=== PATIENT | female | born 1960 | race Caucasian/White ===

== ENCOUNTER 2018-01-01 19:12 | Emergency (ER) | payer SELFPAY ==
[~2018-01-01] VITALS: Ht 162.6 cm; Wt 68.0 kg
[2018-01-01 19:16] VITALS: BP 199/121; PULSE 109; RESP 18; TEMP 99; O2SAT 99
[2018-01-01 19:42] VITALS: BP 197/106; PULSE 103; RESP 18; O2SAT 98
[2018-01-01] MEDS ORDERED: SODIUM CHLOR 0.9% 1000 ML INJ 1,000 ML IV SCH (19:57)
[2018-01-01] MEDS ORDERED: ONDANSETRON HCL 4 MG/2 ML VIAL IVP ONE (20:00)
[2018-01-01] MEDS ORDERED: MORPHINE SULFATE 2 MG/ML INJ IV PUSH ONE (20:00)
--- NOTE | 2018-01-01 20:17 | PD ---
HPI Chief Complaint: Abdominal Pain Time Seen by Provider: 19:48 Travel History International Travel<30 days: No Contact w/Intl Traveler<30days: No Traveled to known affect area: No History of Present Illness HPI 57-year-old female that presents to the ED for evaluation of epigastric abdominal pain. Per patient she's had this for about 24 hours. Per patient he started last night. Per patient his been continues. Per patient she has not been able to drink or eat anything secondary to nausea. Per patient she feels nauseous and hasn't vomited. She states having some diarrhea. States having a history of pancreatitis in the past and states that he feels similar. Per patient she is from out of town. She denies eating anything new. Allergies to Toradol and tramadol. Pain per patient is 7 out of 10. Denies any urinary issues. Denies any fevers chills or sweats. No recent surgeries. She states having had her gallbladder removed. PFSH Past Medical History Diminished Hearing: No Diverticulitis: Yes Gastrointestinal Disorders: Yes (COLITIS) Pancreatitis: Yes ?: Not Past Surgical History Appendectomy: Yes Genitourinary Surgery: Yes (LEFT NEPHRECTOMY) Social History Alcohol Use: No Tobacco Use: No Substance Use: No Allergies-Medications (Allergen,Severity, Reaction): Coded Allergies: ketorolac (Verified Allergy, Mild, Swelling, 01/01/18) tramadol (Verified Allergy, Mild, Itching, 01/01/18) Review of Systems Except as stated in HPI: all other systems reviewed are Neg Physical Exam Narrative GENERAL: SKIN: Warm and dry. HEAD: Atraumatic. Normocephalic. EYES: Pupils equal and round. No scleral icterus. No injection or drainage. ENT: No nasal bleeding or discharge. Mucous membranes pink and moist.Tongue is midline. No uvula deviation. NECK: Trachea midline. No JVD. CARDIOVASCULAR: Regular rate and rhythm. No murmurs, S3, S4. RESPIRATORY: No accessory muscle use. Clear to auscultation. Breath sounds equal bilaterally. GASTROINTESTINAL: Abdomen soft, tender to palpation in the epigastric area, nondistended. Hepatic and splenic margins not palpable. MUSCULOSKELETAL: Extremities without clubbing, cyanosis, or edema. No obvious deformities. Full range of motion of the upper and lower extremities bilaterally. 2+ pulses bilaterally. NEUROLOGICAL: Awake and alert. No obvious cranial nerve deficits. Motor grossly within normal limits. Five out of 5 muscle strength in the arms and legs. Normal speech. PSYCHIATRIC: Appropriate mood and affect; insight and judgment normal. Data Data Last Documented VS Vital Signs Date Time Temp Pulse Resp B/P (MAP) Pulse Ox O2 Delivery O2 Flow Rate FiO2 01/01/18 20:52 95 16 186/108 (134) 98 Room Air 01/01/18 19:16 99.0 Orders Orders Complete Blood Count With Diff (01/01/18 19:41) Comprehensive Metabolic Panel (01/01/18 19:41) Urinalysis - C+S If Indicated (01/01/18 19:41) Iv Access Insert/Monitor (01/01/18 19:41) Oxygen Administration (01/01/18 19:41) Oximetry (01/01/18 19:41) Lipase (01/01/18 19:41) Ct Abd/Pel W Iv Contrast(Rout) (01/01/18 ) Ondansetron Inj (Zofran Inj) (01/01/18 20:00) Sodium Chlor 0.9% 1000 Ml Inj (Ns 1000 M (01/01/18 19:57) Morphine Inj (Morphine Inj) (01/01/18 20:00) Diphenhydramine Inj (Benadryl Inj) (01/01/18 20:30) Hydromorphone Pf Inj (Dilaudid Pf Inj) (01/01/18 21:15) Iohexol 350 Inj (Omnipaque 350 Inj) (01/01/18 21:38) Ed Discharge Order (01/01/18 22:10) Labs Laboratory Tests Test 01/01/18 19:50 01/01/18 21:25 White Blood Count 5.9 TH/MM3 Red Blood Count 4.79 MIL/MM3 Hemoglobin 14.0 GM/DL Hematocrit 41.0 % Mean Corpuscular Volume 85.6 FL Mean Corpuscular Hemoglobin 29.3 PG Mean Corpuscular Hemoglobin Concent 34.2 % Red Cell Distribution Width 14.8 % Platelet Count 191 TH/MM3 Mean Platelet Volume 7.4 FL Neutrophils (%) (Auto) 54.6 % Lymphocytes (%) (Auto) 32.4 % Monocytes (%) (Auto) 9.7 % Eosinophils (%) (Auto) 2.6 % Basophils (%) (Auto) 0.7 % Neutrophils # (Auto) 3.2 TH/MM3 Lymphocytes # (Auto) 1.9 TH/MM3 Monocytes # (Auto) 0.6 TH/MM3 Eosinophils # (Auto) 0.2 TH/MM3 Basophils # (Auto) 0.0 TH/MM3 CBC Comment DIFF FINAL Differential Comment Blood Urea Nitrogen 10 MG/DL Creatinine 1.10 MG/DL Random Glucose 133 MG/DL Total Protein 8.2 GM/DL Albumin 3.8 GM/DL Calcium Level 9.5 MG/DL Alkaline Phosphatase 196 U/L Aspartate Amino Transf (AST/SGOT) 47 U/L Alanine Aminotransferase (ALT/SGPT) 53 U/L Total Bilirubin 0.4 MG/DL Sodium Level 137 MEQ/L Potassium Level 3.7 MEQ/L Chloride Level 103 MEQ/L Carbon Dioxide Level 24.8 MEQ/L Anion Gap 9 MEQ/L Estimat Glomerular Filtration Rate 52 ML/MIN Lipase 133 U/L Urine Color LIGHT-YELLOW Urine Turbidity CLEAR Urine pH 7.5 Urine Specific [place] 1.004 Urine Protein NEG mg/dL Urine Glucose (UA) NEG mg/dL Urine Ketones NEG mg/dL Urine Occult Blood NEG Urine Nitrite NEG Urine Bilirubin NEG Urine Urobilinogen LESS THAN 2.0 MG/DL Urine Leukocyte Esterase NEG Urine RBC 1 /hpf Urine WBC LESS THAN 1 /hpf Urine Squamous Epithelial Cells 5 /hpf Urine Bacteria RARE /hpf Microscopic Urinalysis Comment CULT NOT INDICATED MDM Medical Decision Making Medical Screen Exam Complete: Yes Emergency Medical Condition: Yes Medical Record Reviewed: Yes Interpretation(s) CBC & BMP Diagram 01/01/18 19:50 Total Protein 8.2, Albumin 3.8, Calcium Level 9.5, Alkaline Phosphatase 196 H, Aspartate Amino Transf (AST/SGOT) 47 H, Alanine Aminotransferase (ALT/SGPT) 53, Total Bilirubin 0.4 Last Impressions Abdomen/Pelvis CT 01/01/18 0000 Signed Impressions: Service Date/Time: Monday, January 01, 2018 21:33 - CONCLUSION: No acute findings. Bautista Gonzalez MD lipase WNL UA negative Differential Diagnosis Epigastric pain versus pancreatitis versus acute abdomen versus gastroenteritis versus gastritis Narrative Course 57-year-old female that presents to the ED for evaluation of possible pancreatitis. Patient was properly examined and was found to have signs and symptoms concerning for possible pancreatitis. Labs and imaging were ordered. Patient was given IV pain medications and fluids. Labs and imaging showed no sign of acute disease. More specifically no pancreatitis. Patient was reassessed and does feel improved. At this time I recommend trial of pain medication and antiemetics. Patient agrees with this. Close follow with PCP. Drinking plenty of fluids. Patient understands reasons to come back. See ED if worse. Diagnosis Primary Impression: Gastritis Qualified Codes: K29.00 - Acute gastritis without bleeding Patient Instructions: General Instructions, Narcotic given in the ED Additional Instructions: Take medications as prescribed. Follow-up with PCP. See ED for any worsening symptoms. Do not drink or drive while taking pain medication. Apply ice or heat as needed for pain Med/Other Pt SpecificInfo: Prescription(s) given Scripts Diphenoxylate-Atropine (Lomotil) 2.5-0.025 Mg Tab 1 TAB PO Q6H Y for DIARRHEA, #10 TAB 0 Refills Prov: Seema Curtis MD 01/01/18 Ondansetron Odt (Zofran Odt) 4 Mg Tab 4 MG SL Q6HR Y for Nausea/Vomiting, #20 TAB 0 Refills Prov: Seema Curtis MD 01/01/18 Hydrocodone-Acetaminophen (Hydrocodone-Acetaminophen) 5-325 mg Tab 1 TAB PO Q6H Y for PAIN, #12 TAB 0 Refills Prov: Seema Curtis MD 01/01/18 Disposition: 01 DISCHARGE HOME Condition: Stable John Wilburn Jan 01, 2018 20:17
[2018-01-01] MEDS ORDERED: diphenhydrAMINE HCL 50 MG/ML VIAL IV PUSH ONE (20:30)
[2018-01-01 20:35] LABS: AUTOMATED NEUTROPHIL # 3.2 TH/MM3 (1.8-7.7); BASOPHIL % 0.7 % (0.0-2.0); EOSINOPHIL # 0.2 TH/MM3 (0-0.4); EOSINOPHIL % 2.6 % (0.0-4.0); LYMPH % 32.4 % (9.0-44.0); LYMPHOCYTE # 1.9 TH/MM3 (1.0-4.8); MEAN CELL VOLUME 85.6 FL (80.0-100.0); MEAN CORPUSCULAR HEMOGLOBIN 29.3 PG (27.0-34.0); MEAN CORPUSCULAR HGB CONC 34.2 % (32.0-36.0); MEAN PLATELET VOLUME 7.4 FL (7.0-11.0); MONO % 9.7 % (0.0-8.0); MONOCYTE # 0.6 TH/MM3 (0-0.9); NEUT % 54.6 % (16.0-70.0); PLATELET COUNT 191 TH/MM3 (150-450); RED BLOOD COUNT 4.79 MIL/MM3 (4.00-5.30); RED CELL DISTRIBUTION WIDTH 14.8 % (11.6-17.2); WHITE BLOOD COUNT 5.9 TH/MM3 (4.0-11.0)
[2018-01-01 20:52] VITALS: BP 186/108; PULSE 95; RESP 16; O2SAT 98
[2018-01-01] MEDS ORDERED: HYDROmorphone HCL PF 2 MG/ML VIAL IV PUSH ONE (21:15)
[2018-01-01 21:16] LABS: ALBUMIN 3.8 GM/DL (3.4-5.0); AST (GOT) 47 U/L (15-37); BICARBONATE 24.8 MEQ/L (21.0-32.0); BLOOD UREA NITROGEN 10 MG/DL (7-18); CALCIUM 9.5 MG/DL (8.5-10.1); CHLORIDE 103 MEQ/L (98-107); GLOMERULAR FILTRATION RATE 52 ML/MIN (>89); GLUCOSE,RANDOM 133 MG/DL (74-106); SODIUM (NA) 137 MEQ/L (136-145)
[2018-01-01 21:19] LABS: ALKALINE PHOSPHATASE 196 U/L (45-117); ALT (GPT) 53 U/L (10-53); TOTAL BILIRUBIN ADULT 0.4 MG/DL (0.2-1.0); TOTAL PROTEIN 8.2 GM/DL (6.4-8.2)
[2018-01-01] MEDS ORDERED: IOHEXOL 350 MG/ML 10 ML VIAL (for RAD DIAG) IVCONTRAST ONE (21:38)
--- NOTE | 2018-01-01 21:54 | RADRPT ---
EXAM DATE/TIME: 01/01/2018 21:33 [facility] COMPARISON: No previous studies available for comparison. INDICATIONS : Abdominal pain x1 day. IV CONTRAST: 75 cc Omnipaque 350 (iohexol) IV ORAL CONTRAST: No oral contrast ingested. RADIATION DOSE: 11.90 CTDIvol (mGy) MEDICAL HISTORY : Pancreatitis. Colitis. SURGICAL HISTORY : Appendectomy. Left nephrectomy. ENCOUNTER: Initial ACUITY: 1 day PAIN SCALE: 4/10 LOCATION: Bilateral abdomen TECHNIQUE: Volumetric scanning of the abdomen and pelvis was performed. Using automated exposure control and ad justment of the mA and/or kV according to patient size, radiation dose was kept as low as reasonably achievable to obtain optimal diagnostic quality images. DICOM format image data is available electro nically for review and comparison. FINDINGS: LOWER LUNGS: The visualized lower lungs are clear. LIVER: Homogeneous density without lesion. There is no dilation of the biliary tree. Cholecystectomy. SPLEEN: Normal size without lesion. PANCREAS: Within normal limits. KIDNEYS: Left nephrectomy. Right kidney is normal in configuration. No evidence of mass or hydronephrosis. ADRENAL GLANDS: Within normal limits. VASCULAR: There is no aortic aneurysm. BOWEL/MESENTERY: No dilated loops of small or large bowel. ABDOMINAL WALL: Within normal limits. RETROPERITONEUM: There is no lymphadenopathy. BLADDER: No wall thickening or mass. REPRODUCTIVE: Within normal limits. INGUINAL: There is no lymphadenopathy or hernia. MUSCULOSKELETAL: Within normal limits for patient age. CONCLUSION: No acute findings. Bautista Gonzalez MD on January 01, 2018 at 21:50 Board Certified Radiologist. This report was verified electronically.
[2018-01-01 22:06] LABS: BACTERIA, URINE RARE /hpf; BILIRUBIN, URINE NEG (NEG); BLOOD, URINE NEG (NEG); GLUCOSE,URINE NEG (NEG); KETONE, URINE NEG (NEG); NITRITE,URINE NEG (NEG); PH, URINE 7.5 (5.0-8.5); SQUAMOUS EPITHELIAL CELL URINE 5 /hpf (0-5); URINE COLOR LIGHT-YELLOW (YELLW/STRAW); URINE LEUKOCYTE ESTERASE NEG (NEG)
[2018-01-01] MEDS ORDERED: LOMO2.5T PO (22:12)
[2018-01-01] MEDS ORDERED: HYDR-3516 PO (22:12)
[2018-01-01] MEDS ORDERED: ZOFR4TAB3 SL (22:12)
== END 2018-01-01 22:31 | disposition home or self-care (01) ==
LOC: NEPE 19:12
DX: K29.70 Gastritis, unspecified, without bleeding (principal); Z87.19 Personal history of other diseases of the digestive system; Z88.5 Allergy status to narcotic agent
CPT/HCPCS: 74177; 80053; 81001; 83690; 85025; 96374; 96375; 99285; J1170; J1200; J2270; J2405; J7030; Q9967

== ENCOUNTER 2018-01-07 00:30 | Emergency (ER) | payer SELFPAY ==
[~2018-01-07] VITALS: Ht 162.6 cm; Wt 72.0 kg
[~2018-01-07 00:30] MED LIST: HYDR-3516 PO; LOMO2.5T PO; ZOFR4TAB3 SL
[2018-01-07 00:37] VITALS: BP 188/100; PULSE 98; RESP 18; TEMP 98.6; O2SAT 100
--- NOTE | 2018-01-07 01:14 | PD ---
HPI Chief Complaint: dysuria Time Seen by Provider: 00:53 Travel History International Travel<30 days: No Contact w/Intl Traveler<30days: No Traveled to known affect area: No History of Present Illness HPI 57 y/o female presents with difficulty urinating and discomfort when she does. She states that she does not want a catheter and wants to try to go on her own because she has had those before and they hurt. She states she has not gone for 4 hours. She denies any other specific complaints including fever, vomiting or back pain. She states she has history of one kidney. Quality is burning. Severity is moderate. PFSH Past Medical History Diminished Hearing: No Diverticulitis: Yes Gastrointestinal Disorders: Yes (COLITIS) Immunizations Current: Yes Pancreatitis: Yes Tetanus Vaccination: Unknown Influenza Vaccination: No ?: Unknown Past Surgical History Appendectomy: Yes Genitourinary Surgery: Yes (LEFT NEPHRECTOMY) Social History Alcohol Use: No Tobacco Use: No Substance Use: No Allergies-Medications (Allergen,Severity, Reaction): Coded Allergies: ketorolac (Verified Allergy, Mild, Swelling, 01/07/18) tramadol (Verified Allergy, Mild, Itching, 01/07/18) Reported Meds & Prescriptions Reported Meds & Active Scripts Active Keflex (Cephalexin) 500 Mg Cap 500 Mg PO Q12H 7 Days Lomotil (Diphenoxylate-Atropine) 2.5-0.025 Mg Tab 1 Tab PO Q6H PRN Zofran Odt (Ondansetron Odt) 4 Mg Tab 4 Mg SL Q6HR PRN Hydrocodone-Acetaminophen 5-325 mg Tab 1 Tab PO Q6H PRN Review of Systems Except as stated in HPI: all other systems reviewed are Neg Physical Exam Narrative GENERAL: 57 y/o female in no apparent distress SKIN: Focused skin assessment warm/dry. HEAD: Atraumatic. Normocephalic. EYES: Pupils equal and round. No scleral icterus. No injection or drainage. ENT: No nasal bleeding or discharge. Mucous membranes pink and moist. NECK: Trachea midline. No JVD. CARDIOVASCULAR: Regular rate and rhythm. RESPIRATORY: No accessory muscle use. no increased effort GASTROINTESTINAL: Abdomen soft, mild ttp in suprapubic area. MUSCULOSKELETAL: No obvious deformities. No clubbing. No cyanosis. No edema. NEUROLOGICAL: Awake and alert. No obvious cranial nerve deficits. Motor grossly within normal limits. Normal speech. PSYCHIATRIC: Appropriate mood and affect; insight and judgment normal. Data Data Last Documented VS Vital Signs Date Time Temp Pulse Resp B/P (MAP) Pulse Ox O2 Delivery O2 Flow Rate FiO2 01/07/18 00:37 98.6 98 18 188/100 (129) 100 Orders Orders Urinalysis - C+S If Indicated (01/07/18 01:03) Acetaminophen (Tylenol) (01/07/18 01:45) Ondansetron Odt (Zofran Odt) (01/07/18 01:45) Urine Culture (01/07/18 01:10) Complete Blood Count With Diff (01/07/18 02:10) Comprehensive Metabolic Panel (01/07/18 02:10) Lipase (01/07/18 02:10) Iv Access Insert/Monitor (01/07/18 02:10) Ct Abd/Pel W/O Iv Contrast (01/07/18 ) Ed Discharge Order (01/07/18 03:08) Labs Laboratory Tests Test 01/07/18 01:10 01/07/18 02:15 Urine Color YELLOW Urine Turbidity HAZY Urine pH 5.5 Urine Specific [place] 1.019 Urine Protein 30 mg/dL Urine Glucose (UA) NEG mg/dL Urine Ketones NEG mg/dL Urine Occult Blood TRACE Urine Nitrite NEG Urine Bilirubin NEG Urine Urobilinogen LESS THAN 2.0 MG/DL Urine Leukocyte Esterase MOD Urine RBC 3 /hpf Urine WBC 17 /hpf Urine Squamous Epithelial Cells 21 /hpf Urine Amorphous Sediment RARE Urine Bacteria RARE /hpf Urine Hyaline Casts 41 /lpf Urine Mucus FEW /lpf Microscopic Urinalysis Comment CULTURE INDICATED White Blood Count 9.8 TH/MM3 Red Blood Count 4.72 MIL/MM3 Hemoglobin 13.6 GM/DL Hematocrit 40.5 % Mean Corpuscular Volume 85.8 FL Mean Corpuscular Hemoglobin 28.9 PG Mean Corpuscular Hemoglobin Concent 33.7 % Red Cell Distribution Width 14.5 % Platelet Count 214 TH/MM3 Mean Platelet Volume 6.7 FL Neutrophils (%) (Auto) 67.6 % Lymphocytes (%) (Auto) 22.0 % Monocytes (%) (Auto) 7.7 % Eosinophils (%) (Auto) 2.2 % Basophils (%) (Auto) 0.5 % Neutrophils # (Auto) 6.6 TH/MM3 Lymphocytes # (Auto) 2.1 TH/MM3 Monocytes # (Auto) 0.7 TH/MM3 Eosinophils # (Auto) 0.2 TH/MM3 Basophils # (Auto) 0.1 TH/MM3 CBC Comment DIFF FINAL Differential Comment Blood Urea Nitrogen 14 MG/DL Creatinine 1.89 MG/DL Random Glucose 162 MG/DL Total Protein 8.3 GM/DL Albumin 4.1 GM/DL Calcium Level 8.8 MG/DL Alkaline Phosphatase 196 U/L Aspartate Amino Transf (AST/SGOT) 17 U/L Alanine Aminotransferase (ALT/SGPT) 21 U/L Total Bilirubin 0.4 MG/DL Sodium Level 137 MEQ/L Potassium Level 3.2 MEQ/L Chloride Level 102 MEQ/L Carbon Dioxide Level 26.0 MEQ/L Anion Gap 9 MEQ/L Estimat Glomerular Filtration Rate 28 ML/MIN Lipase 155 U/L MDM Medical Decision Making Medical Screen Exam Complete: Yes Emergency Medical Condition: Yes Medical Record Reviewed: Yes (pmh confirmed) Interpretation(s) CBC & BMP Diagram 01/07/18 02:15 Total Protein 8.3 H, Albumin 4.1, Calcium Level 8.8, Alkaline Phosphatase 196 H , Aspartate Amino Transf (AST/SGOT) 17, Alanine Aminotransferase (ALT/SGPT) 21, Total Bilirubin 0.4 Last 24 hours Impressions Abdomen/Pelvis CT 01/07/18 0000 Signed Impressions: Service Date/Time: Tuesday, January 07, 2018 02:29 - CONCLUSION: Essentially unremarkable study. Amalia Thomas MD ua with uti Differential Diagnosis uti, retention, yeast, stone... Narrative Course will check ua and reevaluate patient now states she is having upper abdominal pain and concerned she is having a pancreatitis flare, will check labs, ct and reevaluate ed workup with uti and renal insufficiency. Patient denies any new complaints and states that they are feeling better. Patient happy with care, all questions answered. Patient knows that follow up is incumbent on them and to return to the emergency room immediately if new or worsening symptoms develop. Patient given strict return precautions, vitals reviewed and are normal, agrees to further workup as an outpatient. Patient notified of creatinine and understand she needs to have this followed closely, no vomiting here and tolerating liquids Diagnosis Primary Impression: UTI (urinary tract infection) Qualified Codes: N39.0 - Urinary tract infection, site not specified Additional Impression: Renal insufficiency Patient Instructions: General Instructions Additional Instructions: return as needed, tylenol as needed, follow with primary tuesday for recheck and repeat kidney function Med/Other Pt SpecificInfo: Prescription(s) given Scripts Cephalexin (Keflex) 500 Mg Cap 500 MG PO Q12H for Infection for 7 Days, #14 CAP 0 Refills Prov: Pao Rosales MD 01/07/18 Disposition: 01 DISCHARGE HOME Condition: Stable Pao Rosales MD Jan 07, 2018 01:14
[2018-01-07] MEDS ORDERED: ACETAMINOPHEN 325 MG TAB PO ONE (01:45)
[2018-01-07] MEDS ORDERED: ONDANSETRON ODT 4 MG TAB PO ONE (01:45)
[2018-01-07 02:01] LABS: AMORPHOUS SEDIMENT, URINE RARE; BACTERIA, URINE RARE /hpf; BILIRUBIN, URINE NEG (NEG); BLOOD, URINE TRACE (NEG); GLUCOSE,URINE NEG (NEG); HYALINE CAST, URINE 41 /lpf (RARE); KETONE, URINE NEG (NEG); MUCUS URINE FEW /lpf (OCC); NITRITE,URINE NEG (NEG); PH, URINE 5.5 (5.0-8.5); SQUAMOUS EPITHELIAL CELL URINE 21 /hpf (0-5); URINE COLOR YELLOW (YELLW/STRAW); URINE LEUKOCYTE ESTERASE MOD (NEG)
--- NOTE | 2018-01-07 02:41 | RADRPT ---
EXAM DATE/TIME: 01/07/2018 02:29 [facility] COMPARISON: CT ABDOMEN & PELVIS W CONTRAST, January 01, 2018, 21:33. INDICATIONS : Pelvic pain and dysuria. ORAL CONTRAST: No oral contrast ingested. RADIATION DOSE: 6.84 CTDIvol (mGy) MEDICAL HISTORY : Pancreatitis. Ulcerative colitis. SURGICAL HISTORY : Nephrectomy, left. Appendectomy.Cholecystectomy. ENCOUNTER: Initial ACUITY: 1 day PAIN SCALE: 8/10 LOCATION: pelvis TECHNIQUE: Volumetric scanning of the abdomen and pelvis was performed. Using automated exposure control and ad justment of the mA and/or kV according to patient size, radiation dose was kept as low as reasonably achievable to obtain optimal diagnostic quality images. DICOM format image data is available electro nically for review and comparison. FINDINGS: CT Abdomen: The liver, spleen, pancreas, right kidney, adrenals are unremarkable. The left kidney is absent surgically with postsurgical changes and areas of scarring in the left flank. There There is n o evidence for any appreciable pathological adenopathy, free fluid, or bowel obstruction. CT pelvis: There is no evidence for mass, abscess formation, or any significant adenopathy within the pelvis. There is moderate amount of stool throughout the colon. CONCLUSION: Essentially unremarkable study. Amalia Thomas MD on January 07, 2018 at 2:36 Board Certified Radiologist. This report was verified electronically.
[2018-01-07 02:43] LABS: AUTOMATED NEUTROPHIL # 6.6 TH/MM3 (1.8-7.7); BASOPHIL # 0.1 TH/MM3 (0-0.2); BASOPHIL % 0.5 % (0.0-2.0); EOSINOPHIL # 0.2 TH/MM3 (0-0.4); EOSINOPHIL % 2.2 % (0.0-4.0); HEMATOCRIT 40.5 % (35.0-46.0); HEMOGLOBIN 13.6 GM/DL (11.6-15.3); LYMPHOCYTE # 2.1 TH/MM3 (1.0-4.8); MEAN CELL VOLUME 85.8 FL (80.0-100.0); MEAN CORPUSCULAR HEMOGLOBIN 28.9 PG (27.0-34.0); MEAN CORPUSCULAR HGB CONC 33.7 % (32.0-36.0); MEAN PLATELET VOLUME 6.7 FL (7.0-11.0); MONO % 7.7 % (0.0-8.0); MONOCYTE # 0.7 TH/MM3 (0-0.9); NEUT % 67.6 % (16.0-70.0); PLATELET COUNT 214 TH/MM3 (150-450); RED BLOOD COUNT 4.72 MIL/MM3 (4.00-5.30); RED CELL DISTRIBUTION WIDTH 14.5 % (11.6-17.2); WHITE BLOOD COUNT 9.8 TH/MM3 (4.0-11.0)
[2018-01-07 02:53] LABS: ALBUMIN 4.1 GM/DL (3.4-5.0); ALT (GPT) 21 U/L (10-53); AST (GOT) 17 U/L (15-37); BLOOD UREA NITROGEN 14 MG/DL (7-18); CALCIUM 8.8 MG/DL (8.5-10.1); CHLORIDE 102 MEQ/L (98-107); CREATININE 1.89 MG/DL (0.50-1.00); GLOMERULAR FILTRATION RATE 28 ML/MIN (>89); GLUCOSE,RANDOM 162 MG/DL (74-106); SODIUM (NA) 137 MEQ/L (136-145)
[2018-01-07 02:55] LABS: ALKALINE PHOSPHATASE 196 U/L (45-117); TOTAL BILIRUBIN ADULT 0.4 MG/DL (0.2-1.0); TOTAL PROTEIN 8.3 GM/DL (6.4-8.2)
[2018-01-07] MEDS ORDERED: CEPH-460 PO (03:10)
== END 2018-01-07 03:26 | disposition home or self-care (01) ==
LOC: NEPC 00:30
DX: N39.0 Urinary tract infection, site not specified (principal); N28.9 Disorder of kidney and ureter, unspecified; Z87.19 Personal history of other diseases of the digestive system; Z88.5 Allergy status to narcotic agent; Z79.899 Other long term (current) drug therapy
CPT/HCPCS: 74176; 80053; 81001; 83690; 85025; 87086; 99284